=== PATIENT | female | born 1950 | race Caucasian/White ===

== ENCOUNTER 2023-11-08 12:34 | Inpatient (IN) ==
[2023-11-08 13:51] LABS: ABS Eosinophils 0.1 10^3/uL (0.0-0.5); ABS Lymphocytes 1.3 10^3/uL (1.0-4.8); ABS Monocytes 0.5 10^3/uL (0.0-0.9); ABS Neutrophils 3.3 10^3/uL (1.5-7.6); Eosinophil % 1.8 %; Hematocrit 39.5 % (35-45); Hemoglobin 12.9 g/dL (11.5-14.3); Lymphocyte % 24.8 %; Mean Corpuscular Hemoglobin 29.7 pg (27-33); Mean Corpuscular Hgb Conc 32.6 g/dL (31-36); Mean Corpuscular Volume 91.1 fL (80-97); Mean Platelet Volume 8.4 fL (7.5-11.2); Nucleated Red Blood Cells % 0.1 %/100WBC (0.0-0.8); Platelet Count 200 10^3/uL (150-450); Red Blood Count 4.33 10^6/uL (3.63-4.92); Red Cell Distribution Width 14.4 % (12-17); White Blood Count 5.2 10^3/uL (3.8-11.8)
[2023-11-08 13:52] LABS: Urine Appearance Clear; Urine Bilirubin Negative (Negative); Urine Blood Negative (Negative); Urine Color Light-Yellow; Urine Glucose Negative (Negative); Urine Ketones Negative (Negative); Urine Nitrite Negative (Negative); Urine Protein Negative (Negative); Urine Specific Gravity 1.011 (1.002-1.030); Urine Urobilinogen Negative (Negative); Urine pH 5.5 (5.0-8.0)
[2023-11-08 13:58] LABS: Urine Bacteria 1+ /HPF (Absent); Urine Red Blood Cell Trace(0-2/hpf) /HPF (0-Trace); Urine Squamous Epithelial Cell Present /HPF (Absent); Urine White Blood Cell Trace(0-5/hpf) /HPF (0-Trace)
[2023-11-08 14:14] LABS: ALT 14 U/L (7-52); AST 15 U/L (13-39); Acetaminophen < 15 mcg/mL; Albumin 4.4 g/dL (3.2-5.2); Albumin/Globulin Ratio 2.6 (1-3); Alcohol, S < 13 mg/dL (<13); Alkaline Phosphatase 47 U/L (35-149); Anion Gap 7 mmol/L (2-16); Blood Urea Nitrogen 17 mg/dL (6-24); CO2 Carbon Dioxide 25 mmol/L (22-32); Calcium 9.9 mg/dL (8.6-10.3); Chloride 106 mmol/L (101-111); Creatinine, Serum 1.01 mg/dL (0.51-0.95); Globulin 1.7 g/dL (2-4); Glucose 116 mg/dL (70-100); Potassium 4.4 mmol/L (3.5-5.0); Salicylate < 2.50 mg/dL (<30); Sodium 138 mmol/L (135-145); Total Bilirubin 0.6 mg/dL (0.2-1.0); Total Protein 6.1 g/dL (6.4-8.9); eGFR CKD-EPI 59.1 (>60)
[2023-11-08 14:16] LABS: Urine Benzodiazepine Screen None Detected (None Detect); Urine Cannabinoids Screen None Detected (None Detect); Urine Opiates Screen None Detected (None Detect)
[2023-11-08 14:25] LABS: TSH Ultra Thyroid Stim Horm 2.79 mcIU/mL (0.34-5.60)
[2023-11-08] MEDS ORDERED: Al Hydrox/Mg Hydrox/Simet LIQ 30 ML UDC PO PRN (15:02)
[2023-11-08] MEDS ORDERED: Conjugated Estrogens VAG CM 42.5 gm TUBE VAGINAL PRN (15:04)
[2023-11-08] MEDS: Ondansetron ODT 4 mg TAB 4 MG TAB PO SCH (15:52)
[2023-11-09] MEDS: DULoxetine DR 20 mg CAP PO SCH (08:42)
[2023-11-09 09:34] LABS: HDL Cholesterol 59.1 mg/dL
[2023-11-09] MEDS: BUDESONIDE 3 MG PO SCH (11:05)
[2023-11-09] MEDS: Nicotine PATCH 7 MG/24 HR PATCH TRANSDERM SCH (11:06)
[2023-11-10] MEDS: DULoxetine DR 60 mg CAP PO SCH (08:50)
[2023-11-14 10:31] VITALS: BP 128/75
== END 2023-11-14 16:05 | disposition home or self-care (01) | DRG 885 ==
LOC: ED 12:34 → BSU 15:02 → EDHOLD 15:02 → BSU 16:47
PROVIDERS: ADMIT Psychiatry & Neurology Psychiatry; ATTEND Psychiatry & Neurology Psychiatry